=== PATIENT | female | born 1990 | race Caucasian/White ===

== ENCOUNTER 2025-05-20 14:51 | Emergency (ER) | payer MEDICAID ==
[~2025-05-20] VITALS: Ht 165.1 cm; Wt 84.5 kg
[2025-05-20 15:02] VITALS: TEMP 97.7
[2025-05-20] MEDS: FLUORESCEIN SODIUM 1 MG STRIP OU ONE (16:07)
[2025-05-20] MEDS: PROPARACAINE HCL 0.5% 15 ML OPHTHALMIC SOLUTION OU ONE (16:07)
[2025-05-20 17:30] VITALS: BP 137/72; PULSE 65; RESP 16; O2SAT 99
[2025-05-20] MEDS: ACETAMINOPHEN 500 MG TABLET PO ONE (17:39)
[2025-05-20] MEDS: ERYTHROMYCIN 0.5% 3.5 GM TUBE OPHTHALMIC OINTMENT OD ONE (17:39)
== END 2025-05-20 17:50 | disposition home or self-care (01) ==
LOC: EMS 14:54
DX: S05.01XA Injury of conjunctiva and corneal abrasion without foreign body, right eye, initial encounter (principal); F12.90 Cannabis use, unspecified, uncomplicated; W22.8XXA Striking against or struck by other objects, initial encounter; Y93.89 Activity, other specified; Y92.89 Other specified places as the place of occurrence of the external cause; Y99.8 Other external cause status
CPT/HCPCS: 99283